=== PATIENT | female | born 1965 | race Caucasian/White ===

== ENCOUNTER 2020-06-26 08:04 | Emergency (ER) | payer OTHER ==
[~2020-06-26] VITALS: Ht 167.6 cm; Wt 99.8 kg
[~2020-06-26 08:04] MED LIST: ATORVASTATIN CA40 M1 PO; LAC PO; LEVAQUIN750 MG PO; PROVENTIL0.09 MG/A1 INH
[2020-06-26 08:32] VITALS: BP 127/65; Ht 167.6 cm; Wt 99.8 kg
[2020-06-26 09:00] LABS: CALCIUM 8.8 mg/dL (8.5-10.1); CARBON DIOXIDE 23.7 mmol/L (21-32); CHLORIDE SERUM 104 mmol/L (98-107); GFR1 > 60 mL/min; GLUCOSE SERUM 295 mg/dL (74-106); POTASSIUM SERUM 4.1 mmol/L (3.5-5.1); SODIUM SERUM 137 mmol/L (136-145)
[2020-06-26 09:04] LABS: ALBUMIN 3.6 g/dL (3.4-5.0); ALKALINE PHOSPHATASE 104 U/L (46-116); ALT/SGPT 51 U/L (14-59); AST/SGOT 27 U/L (15-37); BILIRUBIN TOTAL 0.3 mg/dL (0.20-1.00)
[2020-06-26 09:49] LABS: BASOPHIL % 0.1 % (0.2-1.3); PLATELET COUNT 317 x10^3mcL (179-408); RED CELL DISTRIBUTION WIDTH 14.4 % (12.3-17.7)
== END 2020-06-26 11:15 | disposition home or self-care (01) ==
LOC: ED 08:04
PROVIDERS: Emergency Medicine
DX: R55 Syncope and collapse (principal); R00.2 Palpitations
CPT/HCPCS: 82962; 85378; J1200

== ENCOUNTER 2020-07-12 19:23 | Emergency (ER) | payer OTHER ==
[~2020-07-12] VITALS: Ht 172.7 cm; Wt 83.9 kg
[2020-07-12 19:28] VITALS: BP 172/96; Ht 172.7 cm; Wt 83.9 kg
[2020-07-12] MEDS ORDERED: PRE20 PO (20:14)
[2020-07-12] MEDS ORDERED: EPIPEN0.3 MG/0.1 IM (20:14)
[2020-07-12] MEDS ORDERED: GOOD NEIGHBOR P10 M1 PO (20:14)
== END 2020-07-12 20:31 | disposition home or self-care (01) ==
LOC: ED 19:23
DX: T78.1XXA Other adverse food reactions, not elsewhere classified, initial encounter (principal); Z88.1 Allergy status to other antibiotic agents; X58.XXXA Exposure to other specified factors, initial encounter
CPT/HCPCS: 82962; J7512